=== PATIENT | female | born 1985 | race Two or more races ===

== ENCOUNTER → 2022-07-08 12:21 | Outpatient (CLI) | payer BC, SELFPAY ==
[2022-07-21 19:05] LABS: Narcolepsy DQA1*01:02 Positive (.); Narcolepsy DQB1*06:02 Positive (.)
== END ==
PROVIDERS: Visit Provider Specialist
DX: G47.419 Narcolepsy without cataplexy (principal)
CPT/HCPCS: 36415; 81383